=== PATIENT | male | born 1985 | race Two or more races ===

== ENCOUNTER 2022-03-14 22:52 | Inpatient (IN) | payer OTHER ==
[~2022-03-14] VITALS: Ht 167.6 cm; Wt 47.6 kg
[2022-03-14] MEDS ORDERED: XANAX2 MG (23:23)
--- NOTE | 2022-03-14 23:39 | NUR ---
PTE ALERTA Y ORIENTADO EN HI TANISHA ESFERAS, LLEGA EN SILLA DE [place], EN COMPANIA DE FAMILIAR Y REFIERE ABSCESO EN PIERNA RT (MUSLO) HACE 5 REDDY APROXIMADAMENTE. SE OBSERVA ERITEMA, AREA CALIENTE AL TACTO. SE UBICA EN AREA DE OBSERVACION.
--- NOTE | 2022-03-15 01:21 | NUR ---
PACIENTE EVALUADO POR EL QUIEN ORDENA TRATAMIENTO MEDICO. SE REALIZAN MUESTRAS BAJO MEDIDAS ASEPTICAS Y ADMINISTRAN MEDICAMENT[facility] [place]. SE HACE ENTREGA DE ENVASE DE U/A. SE REALIZA CULTIVO DE ABCESO.
--- NOTE | 2022-03-15 07:25 | NUR ---
SE RECIBE PACIENTE EN AREA DE CRITICO, SE UBICA PACIENTE EN PEPE #1, SE CONECTA A MONITOR CARDIACO Y OXIMETRIA DE PUL[place], PACIENTE PREVIAMENTE CANALIZADO EN BRAZO LANDEN, VENOPUNCION PATENTE, RON DE EDEMA Y ERITEMA, BAJANDO 0.9% NSS A 150ML/HR. SE MANTIENE PACIENTE BAJO OBSERVACION POR CAMBIOS EN TX MEDICO EN ESPERA DE CONSULTA CON DR Macie POLLOCK.
[2022-04-04] MEDS ORDERED: BIKTARVY 50-201 EACH PO (15:19)
[2022-04-04] MEDS ORDERED: LEVOTHYROXINE88 MCG PO (15:19)
[2022-04-04] MEDS ORDERED: MORGIDOX100 MG PO (15:19)
[2022-04-04] MEDS ORDERED: INTESTINEX680 M1 PO (15:21)
[2022-04-04] MEDS ORDERED: CHLORHEXIDINE118 M1 TOP (15:21)
== END 2022-04-04 21:00 | disposition home or self-care (01) | DRG 602 ==
LOC: ER 22:52 → ICU-2 03-15 11:38 → MEDI 03-16 09:26 → MEDJ 03-21 10:02
PROVIDERS: ADMIT Internal Medicine; ATTEND Internal Medicine
PROC: BW24ZZZ Computerized Tomography (CT Scan) of Chest and Abdomen (ICD-10-PCS; principal; 2022-03-15)
PROC: BQ3DZZZ Magnetic Resonance Imaging (MRI) of Right Lower Leg (ICD-10-PCS; 2022-03-19)
PROC: BQ2RZZZ Computerized Tomography (CT Scan) of Right Lower Extremity (ICD-10-PCS; 2022-03-27)
DX: L03.115 Cellulitis of right lower limb (principal); A41.9 Sepsis, unspecified organism; N17.8 Other acute kidney failure; E46 Unspecified protein-calorie malnutrition; B20 Human immunodeficiency virus [HIV] disease; M60.051 Infective myositis, right thigh; F19.20 Other psychoactive substance dependence, uncomplicated; L02.415 Cutaneous abscess of right lower limb; C76.1 Malignant neoplasm of thorax; B95.62 Methicillin resistant Staphylococcus aureus infection as the cause of diseases classified elsewhere; E86.0 Dehydration; R41.82 Altered mental status, unspecified; E03.9 Hypothyroidism, unspecified; R13.19 Other dysphagia; I12.9 Hypertensive chronic kidney disease with stage 1 through stage 4 chronic kidney disease, or unspecified chronic kidney disease; N18.9 Chronic kidney disease, unspecified; Z20.822 Contact with and (suspected) exposure to COVID-19

== ENCOUNTER → 2022-04-23 | Emergency (ER) | payer OTHER ==
[~2022-04-23] VITALS: Ht 175.3 cm; Wt 43.1 kg
[~2022-04-23] MED LIST: BIKTARVY 50-201 EACH PO; CHLORHEXIDINE118 M1 TOP; INTESTINEX680 M1 PO; LEVOTHYROXINE88 MCG PO; MORGIDOX100 MG PO; XANAX2 MG
== END | disposition left against medical advice (07) ==
LOC: ER 20:17
DX: L02.415 Cutaneous abscess of right lower limb (principal); B20 Human immunodeficiency virus [HIV] disease; Z85.828 Personal history of other malignant neoplasm of skin; Z20.822 Contact with and (suspected) exposure to COVID-19

== ENCOUNTER 2022-05-05 15:59 | Inpatient (IN) | payer OTHER ==
[~2022-05-05] VITALS: Ht 152.4 cm; Wt 59.0 kg
[2022-05-06] MEDS ORDERED: LYSIPLEX PLUS178 ML (09:17)
[2022-05-06] MEDS ORDERED: LEVOTHYROXINE88 MCG (09:17)
== END 2022-05-24 19:11 | disposition home or self-care (01) | DRG 603 ==
LOC: ER 15:59 → MEDI 20:22 → MEDJ 05-07 18:57 → MEDI 05-07 18:59
PROVIDERS: ADMIT Internal Medicine; ATTEND Internal Medicine
PROC: BQ2RZZZ Computerized Tomography (CT Scan) of Right Lower Extremity (ICD-10-PCS; principal; 2022-05-05)
PROC: BQ3DZZZ Magnetic Resonance Imaging (MRI) of Right Lower Leg (ICD-10-PCS; 2022-05-07)
PROC: 02HV33Z Insertion of Infusion Device into Superior Vena Cava, Percutaneous Approach (ICD-10-PCS; 2022-05-10)
PROC: BQ2RYZZ Computerized Tomography (CT Scan) of Right Lower Extremity using Other Contrast (ICD-10-PCS; 2022-05-20)
DX: L03.115 Cellulitis of right lower limb (principal); N17.8 Other acute kidney failure; B20 Human immunodeficiency virus [HIV] disease; F19.20 Other psychoactive substance dependence, uncomplicated; L02.415 Cutaneous abscess of right lower limb; B96.89 Other specified bacterial agents as the cause of diseases classified elsewhere; E03.9 Hypothyroidism, unspecified; I12.9 Hypertensive chronic kidney disease with stage 1 through stage 4 chronic kidney disease, or unspecified chronic kidney disease; N18.9 Chronic kidney disease, unspecified
CPT/HCPCS: 73206; 73725